=== PATIENT | male | born 2000 | race Caucasian/White ===

== ENCOUNTER → 2021-02-21 11:33 | Outpatient (BNVA) | payer MEDICAID, SELFPAY | PROVIDERS: PCP Internal Medicine; Referring Provider Internal Medicine; Visit Provider Specialist | DX: G40.219 Localization-related (focal) (partial) symptomatic epilepsy and epileptic syndromes with complex partial seizures, intractable, without status epilepticus (principal); G40.309 Generalized idiopathic epilepsy and epileptic syndromes, not intractable, without status epilepticus; G93.0 Cerebral cysts; G40.109 Localization-related (focal) (partial) symptomatic epilepsy and epileptic syndromes with simple partial seizures, not intractable, without status epilepticus; G43.709 Chronic migraine without aura, not intractable, without status migrainosus; F84.5 Asperger's syndrome | CPT/HCPCS: 99205 ==

== ENCOUNTER → 2021-11-05 14:53 | Outpatient (BNVA) | payer MEDICAID, SELFPAY | PROVIDERS: PCP Internal Medicine; Visit Provider Specialist | DX: G40.219 Localization-related (focal) (partial) symptomatic epilepsy and epileptic syndromes with complex partial seizures, intractable, without status epilepticus (principal); G40.419 Other generalized epilepsy and epileptic syndromes, intractable, without status epilepticus; G43.711 Chronic migraine without aura, intractable, with status migrainosus; G93.0 Cerebral cysts; F84.5 Asperger's syndrome | CPT/HCPCS: 99215 ==

== ENCOUNTER → 2023-03-17 14:56 | Outpatient (BNVA) | payer MEDICAID, SELFPAY | PROVIDERS: PCP Family Medicine; Visit Provider Specialist | DX: G43.909 Migraine, unspecified, not intractable, without status migrainosus (principal); G93.0 Cerebral cysts; G40.309 Generalized idiopathic epilepsy and epileptic syndromes, not intractable, without status epilepticus; F84.5 Asperger's syndrome; G40.219 Localization-related (focal) (partial) symptomatic epilepsy and epileptic syndromes with complex partial seizures, intractable, without status epilepticus | CPT/HCPCS: 99213 ==

== ENCOUNTER → 2025-02-14 08:11 | Outpatient (BNVA) | payer MEDICAID, SELFPAY | PROVIDERS: PCP Family Medicine; Visit Provider Specialist | DX: G40.109 Localization-related (focal) (partial) symptomatic epilepsy and epileptic syndromes with simple partial seizures, not intractable, without status epilepticus (principal); G43.711 Chronic migraine without aura, intractable, with status migrainosus; G93.0 Cerebral cysts; G40.309 Generalized idiopathic epilepsy and epileptic syndromes, not intractable, without status epilepticus; F84.5 Asperger's syndrome; G40.219 Localization-related (focal) (partial) symptomatic epilepsy and epileptic syndromes with complex partial seizures, intractable, without status epilepticus | CPT/HCPCS: 99213 ==